=== PATIENT | female | born 1960 | race African-American/Black ===

== ENCOUNTER 2018-02-18 18:40 | Emergency (ER) | payer SELFPAY ==
[2018-02-18] MEDS ORDERED: OXYCODONE/APAP 5/325 TAB PO ONE (19:18)
--- NOTE | 2018-02-18 19:33 | EDPHY ---
H & P Time Seen by Provider: 02/18/18 19:08 HPI/ROS: Clinical Impression: Acute on chronic low back pain Assessment/Plan: 57-year-old female visiting our area from [facility] with a past medical history of chronic low back pain, presents to the emergency department after allegedly falling down several steps of an escalator prior to arrival causing worsening low back pain. The patient is neurologically intact, vital signs stable. Reproducible midline pain through entire lumbar spine extending into sacrum and coccyx. No reproducible pelvic or hip pain. X-rays read and interpreted by radiologist as negative for acute fracture. No clinical suspicion for cauda equina, epidural abscess, ankle fracture, infectious etiology. Pain improved with oral analgesics. Patient has Lidoderm patches with her. Small amount of pain medication prescribed, encouraged follow-up with her primary provider at home upon returning, no indication at this time for an emergent MRI scan. Warning signs to return to ED sooner outlined in person and discharge papers. Differential Dx: Back pain including but not limited to muscular pain, herniated disc, spine fracture, intra-abdominal causes and urinary tract infection. ED Procedures: See radiology findings below ED Course: 1952: Patient reassessed. Pain improved. Xrays read by radiology, negative for acute findings, reviewed with patient. CD offered, she declined. Chief Complaint: Low back pain HPI: 57-year-old female visiting from [facility] presents to the emergency department with acute on chronic low back pain. Patient reports she was going down the escalator at the [facility] where she is staying when she slipped and slid down approximately 6 steps. She was at the top of the escalator when this happened, was able to get helped up by a family member and was able to walk with assistance. She reports having a known L4/5 disc herniation and chronic sciatica that she manages with Lidoderm patches and Percocet as needed. She admits that she has 1 Percocet tablet remaining and is not planning on returning home for 1 week. She is here for her son's wedding. No report of bowel or bladder incontinence, saddle anesthesia, new or different lower extremity paresthesias, no leg weakness. She is denying hip and upper leg pain. She did not take anything for pain prior to arrival. Accident happened approximately 1 hr ago. PMH: Chronic low back pain Pertinent Past Surgical History: No history of low back surgery ROS: All other systems negative Constitutional: No fever, no chills Musculoskeletal: No deformity, + joint pain Skin: No rashes, color change or open wounds. Neurological: No sensory loss or weakness. Physical Exam: General Appearance: Alert, oriented, appropriate for age, cooperative, appears uncomfortable, tearful, well hydrated, non-toxic appearing, VSS, no hypoxia. Neurological: Alert and oriented x 3, normal sensation and strength of extremities, patellar and Achilles DTRs 2+ bilaterally. No report of bowel or bladder incontinence. Normal lower extremity sensation. No limb ataxia strength 5/5 to both legs. Patient is able to stand and ambulate with minimal assistance. No footdrop. Skin: Warm, dry, no rashes, no nodules on palpation. Musculoskeletal: Reproducible tenderness midline lumbar spine extending into right SI joint. No open wounds. No pain to inversion or eversion of the hips. Full range of motion of both knees. No thoracic or cervical spine tenderness. MDM: Patient was seen independently by established practice protocols. Secondary supervising physician at time of evaluation was Dr. Sanchez. Diagnosis: Acute on chronic low back pain. New, requires workup Summary: See assessment and plan for summary of ED visit Independent visualization of images, tracing, or specimens:yes. Risk of complications, morbidity, mortality Presenting problem low Diagnostic procedures low Management Options low Patient Progress improved. Smoking Status: Never smoked Constitutional: Initial Vital Signs Temperature (C) 37.0 C 02/18/18 18:54 Heart Rate 72 02/18/18 18:54 Respiratory Rate 18 02/18/18 18:54 Blood Pressure 125/98 H 02/18/18 18:54 O2 Sat (%) 96 02/18/18 18:54 O2 Delivery Mode Room Air Allergies/Adverse Reactions: acetaminophen [From Vicodin] Allergy (Verified 02/18/18 18:57) hydrocodone [From Vicodin] Allergy (Verified 02/18/18 18:57) sulfamethoxazole [From Bactrim] Allergy (Verified 02/18/18 18:57) trimethoprim [From Bactrim] Allergy (Verified 02/18/18 18:57) Home Medications: Medication Instructions Recorded oxyCODONE/APAP 5/325 [Percocet 1 - 2 tab PO Q4-6PRN PRN #10 tab 02/18/18 5/325] MDM/Departure - MDM Imaging Results: Imaging Impressions Lumbar Spine X-Ray 02/18/18 19:18 Impression: Negative for fracture with degenerative changes noted. Sacrum and Coccyx X-Ray 02/18/18 19:18 Impression: Negative for fracture. Medications Given: Discontinued Medications Oxycodone/Acetaminophen (Percocet 5/325) 2 tab PO EDNOW ONE Stop: 02/18/18 19:19 Last Admin: 02/18/18 19:25 Dose: 2 tab - Depart Disposition: Home, Routine, Self-Care Condition: Good Instructions: Acute Low Back Pain (ED) Additional Instructions: The x-rays of your lumbar spine, sacrum and coccyx were read by the radiologist with no evidence of acute fracture or deformity, you have known degenerative changes. We gave you a small amount of Percocet to use for breakthrough pain. Do not drive or drink alcohol while taking narcotic pain medication. Please be aware, narcotics can cause constipation, lethargy, and increase your risk of falling. Do not take Tylenol at the same time as Vicodin or Percocet. Please use the Lidoderm patches that you have. Please follow-up with your primary orthopedic provider at home when he returned. Return to the emergency department sooner for worsening pain, inability to ambulate, new or worsening numbness to the legs, bowel or bladder incontinence, numbness to her groin, abdominal pain, fever or any other concern. Prescriptions: oxyCODONE/APAP 5/325 [Percocet 5/325] 1 - 2 tab PO Q4-6PRN PRN #10 tab PRN Reason: Pain, Breakthrough Referrals: REBEL BOYK[facility] [Other] - As per Instructions
[2018-02-18 20:09] VITALS: BP 142/83
== END 2018-02-18 20:08 | disposition home or self-care (01) ==
DX: M54.5 Low back pain (principal); W10.8XXA Fall (on) (from) other stairs and steps, initial encounter; G89.29 Other chronic pain